=== PATIENT | female | born 1955 | race Caucasian/White ===

== ENCOUNTER 2021-10-23 12:44 | Outpatient (CLI) | payer BC | END 2021-10-23 12:45 | disposition home or self-care (01) | LOC: BICMAMMO 12:44 | PROVIDERS: ATTEND Internal Medicine | DX: Z12.31 Encounter for screening mammogram for malignant neoplasm of breast (principal) | CPT/HCPCS: 77063; 77067 ==

== ENCOUNTER 2022-12-28 10:14 | Outpatient (CLI) | payer BC | END 2022-12-28 10:15 | disposition home or self-care (01) | LOC: BICMAMMO 10:14 | PROVIDERS: ATTEND Nurse Practitioner Family | DX: Z12.31 Encounter for screening mammogram for malignant neoplasm of breast (principal); Z13.820 Encounter for screening for osteoporosis; Z78.0 Asymptomatic menopausal state | CPT/HCPCS: 77063; 77067; 77080 ==